=== PATIENT | female | born 1930 | race Caucasian/White ===

== ENCOUNTER 2016-12-17 08:48 | Outpatient (CLI) | payer OTHER, BC ==
[~2016-12-17 08:48] MED LIST: ASPI-1063 PO; LIP20 PO; LISINOPRIL; METO100T PO; NOR10 PO
== END 2016-12-17 20:34 | disposition home or self-care (01) ==
LOC: SMI 08:48
PROVIDERS: ATTEND Orthopaedic Surgery
DX: S83.281A Other tear of lateral meniscus, current injury, right knee, initial encounter (principal); M25.461 Effusion, right knee; M94.261 Chondromalacia, right knee; M76.891 Other specified enthesopathies of right lower limb, excluding foot; X58.XXXA Exposure to other specified factors, initial encounter; Y93.89 Activity, other specified; Y92.89 Other specified places as the place of occurrence of the external cause; Y99.8 Other external cause status
CPT/HCPCS: 73721

== ENCOUNTER 2018-03-09 09:10 | Outpatient (CLI) | payer OTHER, BC | END 2018-03-09 18:53 | disposition home or self-care (01) | LOC: SUS 09:10 | PROVIDERS: ATTEND Internal Medicine | DX: I25.10 Atherosclerotic heart disease of native coronary artery without angina pectoris (principal); I10 Essential (primary) hypertension; Z79.899 Other long term (current) drug therapy | CPT/HCPCS: 93880 ==

== ENCOUNTER 2018-12-26 18:34 | Emergency (ER) | payer OTHER, BC ==
[~2018-12-26] VITALS: Ht 147.3 cm; Wt 53.1 kg
[~2018-12-26 18:34] MED LIST changes: -ASPI-1063 PO; +ASPI-1154 PO
--- NOTE | 2018-12-26 18:34 | NUR ---
TRIAGED AND BROUGHT BACK TO BED #2 VIA WHEELCHAIR, PLACED IN BED AND REPORT GIVEN TO [place]ON[place]
[2018-12-26 18:35] VITALS: BP_SYST 195
--- NOTE | 2018-12-26 19:10 | NUR ---
Report given to [place] for continuation of care.
--- NOTE | 2018-12-26 19:56 | NUR ---
ER at bedside examining patient.
[2018-12-26 21:20] LABS: BASOPHILS # (AUTO) 0.1 K/uL (0.0-0.2); BASOPHILS % (AUTO) 0.6 % (0.0-2.0); EOSINOPHILS # (AUTO) 0.1 K/uL (0.0-0.4); EOSINOPHILS % (AUTO) 1.3 % (0.0-4.0); HEMATOCRIT 33.7 % (36-48); HEMOGLOBIN 10.9 g/dL (12.0-16.0); LYMPHOCYTES % (AUTO) 9.3 % (20.5-51.5); MEAN CORPUSCULAR HEMOGLOBIN 25 pg (27-31); MEAN CORPUSCULAR HGB CONC 32 % (32-36); MEAN CORPUSCULAR VOLUME 78 fL (79.0-98.0); MONOCYTES # (AUTO) 0.7 K/uL (0.0-1.0); MONOCYTES % (AUTO) 7.1 % (1.7-9.3); NEUTROPHILS # (AUTO) 8.4 K/uL (1.8-7.7); NEUTROPHILS % (AUTO) 81.7 % (40.0-70.0); PLATELET COUNT (AUTO) 399 K/uL (130-430); WHITE BLOOD COUNT (AUTO) 10.3 K/uL (4.8-10.8)
[2018-12-26 21:27] LABS: INR 1.4 (0.8-1.2); PROTHROMBIN TIME 14.2 SECS (9.5-12.5)
[2018-12-26 21:45] VITALS: BP_SYST 146
--- NOTE | 2018-12-26 21:45 | NUR ---
Patient given written and verbal discharge instructions and verbalizes understanding. ER MD discussed with patient the results and treatment provided. Patient in stable condition. ID arm band removed. Rx of Ultram given. Patient educated on pain management and to follow up with PMD. Pain Scale 0/10. Opportunity for questions provided and answered. Medication side effect fact sheet provided.
== END 2018-12-26 21:45 | disposition home or self-care (01) ==
LOC: SED 18:34
DX: S00.12XA Contusion of left eyelid and periocular area, initial encounter (principal); S00.33XA Contusion of nose, initial encounter; I10 Essential (primary) hypertension; Z79.899 Other long term (current) drug therapy; W01.0XXA Fall on same level from slipping, tripping and stumbling without subsequent striking against object, initial encounter; Y93.89 Activity, other specified; Y92.89 Other specified places as the place of occurrence of the external cause; Y99.8 Other external cause status
CPT/HCPCS: 36415; 70450-TC; 70486-TC; 85025; 85610-TC; 99284